=== PATIENT | female | born 1950 | race Caucasian/White ===

== ENCOUNTER → 2020-06-03 | Outpatient (CLI) | payer MEDICARE, BC ==
[2020-06-03 12:51] LABS: Basophils # (A) 0.2 k/uL (0-0.2); Basophils % (A) 2 %; Eosinophils # (A) 0.2 k/uL (0-0.7); Eosinophils % (A) 2 %; HCT 42.4 % (34.0-46.0); HGB 14.3 gm/dL (11.4-16.0); Lymphocytes # (A) 2.7 k/uL (1.0-4.8); Lymphocytes % (A) 33 %; MCH 31.5 pg (25.0-35.0); MCHC 33.7 g/dL (31.0-37.0); MCV 93.6 fL (80.0-100.0); Mean Platelet Volume 7.5; Monocytes # (A) 0.5 k/uL (0-1.0); Monocytes % (A) 6 %; Neutrophils # (A) 4.6 k/uL (1.3-7.7); Neutrophils % (A) 56 %; Platelet Count 494 k/uL (150-450); RBC 4.53 m/uL (3.80-5.40); WBC 8.2 k/uL (3.8-10.6)
[2020-06-03 13:01] LABS: Prothrombin Time 9.9 sec (9.0-12.0)
[2020-06-03 13:04] LABS: Potassium 4.1 mmol/L (3.5-5.1)
== END | disposition home or self-care (01) ==
LOC: LABWHC1 12:10
PROVIDERS: ATTEND Orthopaedic Surgery
DX: Z01.818 Encounter for other preprocedural examination (principal); Z01.812 Encounter for preprocedural laboratory examination; T84.84XD Pain due to internal orthopedic prosthetic devices, implants and grafts, subsequent encounter; Z96.652 Presence of left artificial knee joint; Z79.01 Long term (current) use of anticoagulants
CPT/HCPCS: 36415; 80051; 85025; 85610; 87070

== ENCOUNTER 2020-06-08 11:41 | Inpatient (IN) | payer MEDICARE, BC ==
[2020-06-03 09:32] VITALS: BMI 27.8
--- NOTE | 2020-06-08 09:25 | HP ---
HISTORY AND PHYSICAL CHIEF COMPLAINT: Left knee pain. HISTORY OF PRESENT ILLNESS: The patient is a 69-year-old female who presents with progressive left knee pain after a previous twisting injury in November of this year. She twisted her knee. Now she is having intermittent locking and giving out. She underwent total knee arthroplasty in 2012. She has tried bracing along with rest and medications with persistence of her symptoms. PAST MEDICAL HISTORY: Significant for arthritis and hypertension. PAST SURGICAL HISTORY: Significant for left total knee arthroplasty and cholecystectomy. CURRENT MEDICATIONS: Telmisartan. She has allergies to AUGMENTIN. FAMILY HISTORY: Significant for heart disease and cancer. SOCIAL HISTORY: Negative for current tobacco or alcohol use. REVIEW OF SYSTEMS: Otherwise reviewed and is noncontributory. PHYSICAL EXAMINATION: On examination, the patient is approximately 5 foot 4, 163 pounds of mesomorphic habitus. HEENT: Exam is nonfocal. NECK: Supple. She has painless passive motion of the left hip. Straight leg raise is negative. Active motion left knee -24 degrees, full extension to 115 degrees of flexion. She has a moderate effusion. She is tender about the medial and lateral joint line. She does have some laxity with valgus stress at 30 degrees in addition to increased anterior- posterior laxity. Her distal neurovascular exam appears to be intact. She does have an antalgic gait pattern. X-rays of the left knee obtained in the office show a total knee arthroplasty with no definite lucencies or loosening. Appears to be a cruciate retaining implant. IMPRESSION: Painful left total knee arthroplasty with instability, possible PCL rupture. RECOMMENDATIONS: I talked to the patient at length regarding her condition and treatment options. At this point, she is having significant symptoms and limitation. After thorough discussion, she opts to proceed with surgery. We will plan to proceed with revision of her left total knee arthroplasty with potential polyethylene exchange versus revision of the femoral and tibial components as well. We will potentially convert this to a posterior stabilized implant. Risks and benefits were discussed at length in layman's terms. MMODL / IJN: [id number] /
[~2020-06-08 11:41] MED LIST: ACETAMINOPHEN TAB 500 MG TAB PO PRN; MELOXICAM 7.5 MG TAB PO PRN; TRANEXAMIC ACID 1,000 MG in SODIUM CHLORIDE 0.9% 100 ML IVPB PRN
[2020-06-08] MEDS ORDERED: ROPIVACAINE 246.25 MG, EPINEPHrine 0.5 MG, KETOROLAC 30 MG, cloNIDine HCL/PF 80 MCG, WA... MISCELLANE ONE ×5 (12:17)
[2020-06-08] MEDS ORDERED: ONDANSETRON 4 MG/2 ML VIAL ONE (12:37)
[2020-06-08] MEDS ORDERED: IV FLUID CONTINUATION 1,000 ML IV ONE (12:55)
[2020-06-08] MEDS ORDERED: LIDOCAINE 1% (10MG/ML) FOR IV START INTRADERMA ONE (12:55)
[2020-06-08] MEDS ORDERED: DEXAMETHASONE SOD PHOSPHATE 4 MG/ML 1 ML VIAL IV ONE (13:00)
[2020-06-08] MEDS ORDERED: ONDANSETRON 4 MG/2 ML VIAL IVP ONE (13:00)
[2020-06-08] MEDS ORDERED: MIDAZOLAM 2 MG/2 ML VIAL IV ONE (13:14)
[2020-06-08] MEDS ORDERED: TRANEXAMIC ACID 1,000 MG/10 ML VIAL ONE (13:25)
[2020-06-08] MEDS ORDERED: fentaNYL (PF) 50 MCG/ML 2 ML AMP ONE (13:25)
[2020-06-08] MEDS ORDERED: MIDAZOLAM 2 MG/2 ML VIAL ONE (13:25)
[2020-06-08] MEDS ORDERED: SODIUM CHLORIDE 0.9% 100 ML BAG ONE (13:25)
[2020-06-08] MEDS ORDERED: LIDOCAINE 1% INJ 10MG/ML (20 ML MDV) ONE (13:25)
[2020-06-08] MEDS ORDERED: PROPOFOL 10 MG/ML 20 ML VIAL IV ONE (13:25)
[2020-06-08] MEDS ORDERED: ceFAZolin 3,000 MG in SODIUM CHLORIDE 0.9% IRRIGATIO 3,000 ML IRRIGATION ONE (14:04)
[2020-06-08] MEDS ORDERED: ROPIVACAINE 0.2%-NS ON-Q PUMP 1,090 MG, EMPTY PAIN BALL 1 EACH MISCELLANE PRN (15:14)
--- NOTE | 2020-06-08 15:18 | P.OP ---
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 She underwent initial total knee arthroplasty in 2012. She is having mechanical symptoms with her knee locking intermittently. A discussion of the risks and benefits of operative intervention was made with the patient. She opted to proceed. Operative risks to include infection, neurovascular injury, development of blood clots, possible persistent instability need for subsequent procedures was discussed. Informed consent was obtained. Operative Findings: As below Description of Procedure: The patient was brought to the operating room, and after induction of spinal anesthesia the left lower extremity was prepped and draped in normal fashion. I examined the left knee. There was moderate medial and lateral in addition to anterior/ posterior instability. The tourniquet was inflated to 270 mmHg. The previous incision was utilized. Skin and subcutaneous tissues were divided sharply. Electrocautery was used for hemostasis. A medial parapatellar arthrotomy was performed. The patella was everted and the knee was flexed. The polyethylene was removed. There was noted to be significant delamination of the posterior medial corner with a large posterior medial fracture/fragment in the posterior aspect of the joint. This was removed. The joint was inspected. The tibial and femoral components were felt to be stable. I did send tissue for frozen section that showed no acute inflammation. Gram stain cultures were also obtained. A trial size 15 cruciate retaining articular surface was placed. The knee was taken through range of motion. I was able to obtain full flexion and extension with good stability with varus and valgus stress. There was also good anterior to posterior stability. The trial articular surface was removed and the posterior capsule along with the soft tissues were injected with ropivacaine. The final articular surface was placed. This was fully seated. Again the knee was taken through range of motion and felt to be stable. There was good patellofemoral tracking. The wound was irrigated with pulsatile lavage. The tourniquet was deflated with less than 40 minutes total tourniquet time. The medial parapatellar arthrotomy was closed with running #2 Ethibond suture. The subcu tissues reapproximated interrupted 2-0 Vicryl suture. The skin was reapproximated 3-0 subcuticular strata fix suture. Skin tape and adhesive was applied. A sterile dressing was applied. The patient was awoken from sedation and transferred to the recovery room in good condition. Blood loss was estimated 50 mL. No complications were incurred. Sponge and needle counts were correct at the end of the case.
[2020-06-08] MEDS ORDERED: HYDROmorphone 0.5 MG/0.5 ML SYRINGE IVP PRN ×2 (15:19→15:20)
[2020-06-08] MEDS ORDERED: HYDROcodone/APAP 5-325MG 1 EACH TAB PO PRN ×3 (15:19→15:20)
[2020-06-08] MEDS ORDERED: ONDANSETRON 4 MG/2 ML VIAL IVP PRN ×2 (15:19→15:20)
[2020-06-08] MEDS ORDERED: MAGNESIUM HYDROXIDE 2,400 MG/10 ML CUP PO PRN (15:20)
[2020-06-08] MEDS ORDERED: NALOXONE 0.4 MG/ML 1 ML VIAL IV PRN (15:20)
[2020-06-08] MEDS ORDERED: ACETAMINOPHEN TAB 325 MG TAB PO PRN (15:20)
[2020-06-08] MEDS ORDERED: traMADol 50 MG TAB PO PRN (15:20)
--- NOTE | 2020-06-08 15:34 | P.ANPRN ---
Procedure Note - Anesthesia - Nerve Block Performed Left Adductor Canal Infusion Time Out Performed: Yes Date of Procedure: 06/08/20 Procedure Start Time: 13:14 Procedure Stop Time: 13:24 Location of Patient: PreOp Indication: Acute Post-Operative Pain, Requested by Surgeon Sedation Type: Sedate with meaningful contact maintained Preparation: Sterile Prep, Sterile Dressing Position: Supine Catheter: Indwelling Needle Types: Pajunk Needle Gauge: 21 Ultrasound used to visualize needle placement: Yes Ultrasound used to observe medication spread: Yes Blood Aspirated: No Pain Paresthesia on Injection Noted: No Resistance on Injection: Normal Image Stored and Saved: Yes Events: Uneventful and Well Tolerated (ropi .5% 20cc plus dexamethasone 4mg)
--- NOTE | 2020-06-08 15:38 | XR ---
EXAMINATION TYPE: XR knee limited LT DATE OF EXAM: 06/08/2020 COMPARISON: NONE TECHNIQUE: Two views submitted HISTORY: Post op FINDINGS: There is a prosthetic knee in near anatomic alignment. There is soft tissue edema and emphysema. IMPRESSION: 1. Postoperative change. Appears in near-anatomic alignment
[2020-06-08] MEDS: ENOXAPARIN 40 MG/0.4 ML SYRINGE SQ SCH (16:51)
[2020-06-08] MEDS ORDERED: SENNOSIDES-DOCUSATE SODIUM 1 EACH TAB PO SCH (21:00)
[2020-06-08] MEDS: ASPIRIN 81 MG PO SCH (21:00)
[2020-06-08] MEDS: HYDROcodone/APAP 5-325MG 1 EACH TAB PO PRN (21:02)
[2020-06-09] MEDS: ENOXAPARIN 40 MG/0.4 ML SYRINGE SQ SCH (01:35)
[2020-06-09 06:23] LABS: Basophils % (A) 0 %; Eosinophils % (A) 0 %; HCT 41.2 % (34.0-46.0); HGB 13.2 gm/dL (11.4-16.0); Lymphocytes # (A) 1.5 k/uL (1.0-4.8); Lymphocytes % (A) 10 %; MCH 30.3 pg (25.0-35.0); MCHC 32.1 g/dL (31.0-37.0); MCV 94.5 fL (80.0-100.0); Mean Platelet Volume 7.3; Monocytes # (A) 0.6 k/uL (0-1.0); Monocytes % (A) 4 %; Neutrophils # (A) 12.7 k/uL (1.3-7.7); Neutrophils % (A) 85 %; Platelet Count 520 k/uL (150-450); RBC 4.36 m/uL (3.80-5.40); RDW 12.9 % (11.5-15.5)
[2020-06-09 07:57] VITALS: RESP 17
[2020-06-09] MEDS: ASPIRIN 81 MG PO SCH (08:13)
[2020-06-09] MEDS ORDERED: LOSARTAN 50 MG TAB PO SCH (09:00)
[2020-06-09] MEDS ORDERED: hydroCHLOROthiazide 12.5 MG CAP PO SCH (09:00)
[2020-06-09] MEDS ORDERED: ENOXAPARIN 40 MG/0.4 ML SYRINGE SQ SCH (09:00)
[2020-06-09] MEDS ORDERED: NON FORMULARY DRUG (Ubidecarenone [Co Q-10] 100 MG Capsule) PO SCH (09:00)
--- NOTE | 2020-06-09 09:59 | P.PN ---
Subjective Progress Note Date: 06/09/20 Principal diagnosis: Status post revision left total knee arthroplasty polyethylene liner exchange Patient is evaluated today at bedside, she is resting comfortably in her hospita l chair. She's ambulated with therapy Minimal difficulty. Pain is well- controlled. She currently denies any headaches, lightheadedness, chest pain or shortness of breath. Objective - Vital Signs Vital signs: Vital Signs Temp 98.5 F 06/09/20 07:33 Pulse 70 06/09/20 07:33 Resp 17 06/09/20 07:33 BP 134/75 06/09/20 07:33 Pulse Ox 95 06/09/20 07:33 Intake & Output 06/08/20 06/09/20 06/09/20 18:59 06:59 18:59 Intake Total 751 Output Total 50 Balance 701 Weight 77.6 kg Intake: IV 751 Output: Estimated Blood Loss 50 Other: # Voids 3 # Bowel Movements 1 - Exam Left lower extremity: Incision is clean, dry, and intact. The exofin fusion tape is in good condition. There is minimal soft tissue swelling and ecchymosis surrounding the medial and lateral aspects of the incision. Calf is soft, no tenderness with palpation. Plantar flexion, dorsiflexion, EHL, FHL are intact. Sensory exam to light touch throughout the extremity is intact, dorsal pedis pulses 2+. - Labs CBC & Chem 7: 06/09/20 05:46 Labs: Abnormal Lab Results - Last 24 Hours (Table) 06/09/20 Range/Units 05:46 WBC 15.0 H (3.8-10.6) k/uL Plt Count 520 H (150-450) k/uL Neutrophils # 12.7 H (1.3-7.7) k/uL Microbiology - Last 24 Hours (Table) 06/08/20 13:59 Gram Stain - Preliminary Knee - Left Wound Culture - Preliminary 06/08/20 13:59 Gram Stain - Preliminary Knee - Left Wound Culture - Preliminary 06/08/20 13:59 Anaerobic Culture - Preliminary Knee - Left 06/08/20 13:59 Anaerobic Culture - Preliminary Knee - Left Assessment and Plan Assessment: Status post revision total knee arthroplasty polyethylene liner exchange Plan: Pain control, plan for discharge home on oral medication DVT prophylaxis, we'll increase her baby aspirin to twice a day for 2 weeks Wound care instructions were discussed Home health care after discharge Plan for discharge home today Time with Patient: Less than 30
--- NOTE | 2020-06-09 10:03 | P.DS ---
Providers Date of admission: 06/08/20 11:41 Expected date of discharge: 06/09/20 Attending physician: Duong Guillory Primary care physician: Stated None Hospital Course: Date of admission: 06/08/2020 Date of discharge: 06/09/2020 Admission diagnosis: Status post revision left total knee arthroplasty polyethylene liner exchange Discharge diagnosis: Same Attending physician: Dr. Guillory Surgical procedures: Revision left total knee arthroplasty polyethylene exchange Brief history: Patient is a 69-year-old female with a history of a previous left total knee arthroplasty that has progressively become very painful. At this point patient has failed conservative treatment measures and has opted to proceed with a elective revision left total knee arthroplasty, which did reveal a failure of the polyethylene liner. Hospital course: Details of patient's surgery can be found in operative report. Patient tolerated the procedure well and was subsequently transported to orthopedic floor. Patient's orthopeidc and medical care was provided daily. Patient had daily laboratory tests performed for evaluation of overall blood counts. Patient had daily physical therapy to include strengthening range of motion as well as education with walker ambulation. Patient was treated with Lovenox for their postoperative DVT prophylaxis during their inpatient stay. Patient was noted to have a relatively uneventful postoperative course. Patient reported satisfactory pain control with oral pain medications by postoperative day 0. Patient showed satisfactory progress with physical therapy. Patient moved steadily through the program and had no difficulty meeting the goals by postoperative day 1. Given patient's otherwise satisfactory course and having met physical therapy goals, plan is to discharge patient home on postoperative day 1. Discharge condition/disposition: Patient will be discharged home in stable condition. Discharge medications: Instructions are given on resumption of patient's normal daily medications per primary care recommendation, in addition patient will be prescribed [place] 5 mg/325 mg, Colace 100 mg, aspirin 81 mg. Discharge instructions: 1. Wound care and infection precautions, keep incision dry and covered while showering, no lotions, creams, moisturizers. No soaking, tubs, pools, hottubs. Do not scrub over the incision. 2. Weight-bear as tolerated with walker / cane until follow-up. 3. Ice and elevate when necessary. Do not exceed 20 minutes per hour with ice pack. 4. Utilize compression sleeve until seen at first follow up appointment. 5. Visiting nursing care. 6. Home physical therapy including home CPM. 7. Pain meds and anticoagulants per prescription. 8. Pain medication has potential to cause constipation. Increase oral fluid and fiber intake. Contact primary care provider if you have not had a bowel movement within 48 hours after discharge 9. No anti-inflammatory medication until discussed at first post operative visit, this including Motrin, Aleve, Mobic, Diclofenac. 10. Follow up in office at 2 weeks postop with Danilo Salcedo PA-C 11. Follow up with your primary care doctor 7-10 days after discharge. 12. Contact [facility] with any questions, . Procedures: Revision left total knee arthroplasty, polyethylene liner exchange Patient Condition at Discharge: Good Plan - Discharge Summary Discharge Rx Participant: Yes New Discharge Prescriptions: New Aspirin [Adult Low Dose Aspirin EC] 81 mg PO BID #60 tablet. Docusate [Colace] 100 mg PO DAILY #20 capsule Hydrocodone/Acetaminophen [[place] 5-325] 1 each PO Q6HR PRN #30 tab PRN Reason: Pain No Action Telmisartan/Hydrochlorothiazid [Telmisartan-Hctz 40-12.5 mg Tb] 1 each PO DAILY Calcium Carbonate/Vitamin D3 [Caltrate 600 Plus D3 Tablet] 1 each PO DAILY Multivit with Calcium,Iron,Min [Women's Multivitamin] 1 each PO DAILY Cholecalciferol [Vitamin D3 (25 Mcg = 1000 Iu)] 2,000 unit PO DAILY Cranberry Fruit Extract [Cranberry] 500 mg PO DAILY Pullman-3 Fatty Acids [Pullman-3] 1,000 mg PO DAILY Ubidecarenone [Co Q-10] 120 mg PO DAILY Zinc 50 mg PO DAILY Acetaminophen [Tylenol Extra Strength] 1,000 mg PO BID PRN PRN Reason: Pain Ibuprofen [Advil] 400 mg PO HS PRN PRN Reason: Pain Discharge Medication List Acetaminophen [Tylenol Extra Strength] 1,000 mg PO BID PRN 06/03/20 [History] Calcium Carbonate/Vitamin D3 [Caltrate 600 Plus D3 Tablet] 1 each PO DAILY 06/03 [History] Cholecalciferol [Vitamin D3 (25 Mcg = 1000 Iu)] 2,000 unit PO DAILY 06/03/20 [History] Cranberry Fruit Extract [Cranberry] 500 mg PO DAILY 06/03/20 [History] Ibuprofen [Advil] 400 mg PO HS PRN 06/03/20 [History] Multivit with Calcium,Iron,Min [Women's Multivitamin] 1 each PO DAILY 06/03/20 [History] Pullman-3 Fatty Acids [Pullman-3] 1,000 mg PO DAILY 06/03/20 [History] Telmisartan/Hydrochlorothiazid [Telmisartan-Hctz 40-12.5 mg Tb] 1 each PO DAILY 06/03/20 [History] Ubidecarenone [Co Q-10] 120 mg PO DAILY 06/03/20 [History] Zinc 50 mg PO DAILY 06/03/20 [History] Aspirin [Adult Low Dose Aspirin EC] 81 mg PO BID #60 tablet.dr 06/09/20 [Rx] Docusate [Colace] 100 mg PO DAILY #20 capsule 06/09/20 [Rx] Hydrocodone/Acetaminophen [[place] 5-325] 1 each PO Q6HR PRN #30 tab 06/09/20 [Rx] Follow up Appointment(s)/Referral(s): Joesph Salcedo PAC [PHYSICIAN LEARNING TECHNOLOGIES SPECIALIST] - 2 Weeks Activity/Diet/Wound Care/Special Instructions: Orthopedic Discharge Instructions: 1. Wound care and infection precautions, keep incision dry and covered while showering, no lotions, creams, moisturizers. No soaking, pools, hot tubs. Do not scrub over incision. 2. Weight-bear as tolerated with walker / cane until follow-up. 3. Ice and elevate when necessary. Do not exceed 20 minutes per hour with ice pack. 4. Utilize compression sleeve until seen at first follow up appointment. 5. Pain meds and anticoagulants per prescription. 6. Pain medication has potential to cause constipation. Increase oral fluid and fiber intake. Contact primary care provider if you have not had a bowel movement within 48 hours after discharge. 7. No anti-inflammatory medication until discussed at first post operative visit, this including Motrin, Aleve, Mobic, Diclofenac. 8. Follow up in office at 2 weeks postop with Danilo Salcedo PA-C 9. Follow up with your primary care doctor 7-10 days after discharge. 10. Contact [facility] with any questions, . Discharge Disposition: HOME WITH HOME HEALTH SERVICES
--- NOTE | 2020-06-09 12:26 | P.PN ---
Progress Note - Text 06/09/20 655am 69-year-old female status post total knee replacement by Dr. Guillory. Patient has an On-Q pump for postop pain control with the solution running at 8 mL an hour with a VAS of 2. Plan to continue On-Q pump infusion
[2020-06-09] MEDS: HYDROcodone/APAP 5-325MG 1 EACH TAB PO PRN (14:46)
[2020-06-09 14:55] VITALS: BP 139/72; PULSE 71; TEMP 97.9
== END 2020-06-09 15:20 | disposition home health service (06) | DRG 465 ==
LOC: 2CATHESU 11:41 → 4SSUR 15:19
PROVIDERS: ADMIT Orthopaedic Surgery; ATTEND Orthopaedic Surgery
PROC: 0SWD0JC Revision of Synthetic Substitute in Left Knee Joint, Patellar Surface, Open Approach (ICD-10-PCS; principal; 2020-06-08 13:20)
PROC: 0SPD0JC Removal of Synthetic Substitute from Left Knee Joint, Patellar Surface, Open Approach (ICD-10-PCS; principal; 2020-06-08 13:20)
DX: T84.093A Other mechanical complication of internal left knee prosthesis, initial encounter (principal); I10 Essential (primary) hypertension; M19.90 Unspecified osteoarthritis, unspecified site; Z79.899 Other long term (current) drug therapy; Z87.448 Personal history of other diseases of urinary system; Z98.890 Other specified postprocedural states; Z90.49 Acquired absence of other specified parts of digestive tract; Z91.81 History of falling; Z88.0 Allergy status to penicillin; Y83.1 Surgical operation with implant of artificial internal device as the cause of abnormal reaction of the patient, or of later complication, without mention of misadventure at the time of the procedure; X50.1XXA Overexertion from prolonged static or awkward postures, initial encounter; Z82.49 Family history of ischemic heart disease and other diseases of the circulatory system; Z80.9 Family history of malignant neoplasm, unspecified
CPT/HCPCS: 64448; 76942; 85025; 87070; 87075; 87205; 88305; 88331

== ENCOUNTER → 2020-11-29 | Outpatient (CLI) | payer MEDICARE, BC ==
--- NOTE | 2020-11-30 08:34 | CT ---
EXAMINATION TYPE: CT ChestAbdPelvis wo con DATE OF EXAM: 11/29/2020 COMPARISON: None HISTORY: 70 year-old female elevated platelet count, thrombocytosis, D47.3. abnormal labs TECHNIQUE: Contiguous axial scanning of the chest, abdomen, and pelvis without IV contrast. Coronal a nd sagittal reconstructions performed. CT DLP: 787 mGycm Automated exposure control for dose reduction was used. FINDINGS: CHEST: Suggestion of a 1.4 cm nodule within the right lobe of the thyroid gland. Dedicated thyroid ultrasoun d can further evaluate. Heart normal size without pericardial effusion. Borderline ectasia ascending aorta 3.5 cm with conventional arch vessel branching anatomy. Ectatic lo w descending thoracic aorta at 2.7 cm. Prominent but nonenlarged precarinal lymph node at 9 mm. Allowing for noncontrast technique, no thora cic lymphadenopathy is identified. Strandy atelectasis in the lower lungs. Biapical pleural parenchymal scarring. More irregular focal o pacity measuring 5 mm at the right apex, axial image 8 could be reassessed in 6 months. No consolidat ion or pleural effusion. ABDOMEN: Tiny hiatal hernia. Cholecystectomy clips. Liver enlarged at 24.3 cm, probably due to the presence of a Librado's lobe. Otherwise, noncontrast ap pearance of the liver, adrenal glands, and pancreas show no gross evaluate. An extrarenal pelvis in both kidneys. Spleen is normal size at 8.9 cm. There is an omental fat-containing right periumbilical hernia measuring 4.9 cm wide. The abdominal wa ll defect measures 1.6 cm wide. No dilated small bowel, free fluid, or free air. No mesenteric or retroperitoneal lymphadenopathy. Surgical material in the right lower quadrant. Oral contrast progressed to the rectum. There is sigmo id diverticulosis. No pericolonic inflammatory change. No significant stool burden. PELVIS: Bladder is urine distended. Uterus surgically absent. Neither ovaries are clearly visualized. Tiny pe lvic phlebolith. No abnormal fluid collection in the pelvis. Small external iliac chain lymph nodes m easuring up to 7 mm. BONES: Some degenerative change at the pubic symphysis. Mild degenerative change of both hips. Degenerated l evoconvex curvature of the lumbar spine. DISH within the mid to lower thoracic spine. IMPRESSION: 1. NO SUSPICIOUS LYMPHADENOPATHY. NO SPLENOMEGALY. SIGMOID DIVERTICULOSIS BUT WITHOUT ACUTE INFLAMMAT ORY PROCESS IDENTIFIED. 2. BIAPICAL PLEURAL-PARENCHYMAL SCARRING. A MORE FOCAL DENSITY AT THE RIGHT APEX MEASURES 5 MM AND CO ULD REPRESENT ADDITIONAL SCARRING. SIX-MONTH FOLLOW-UP CT CHEST RECOMMENDED TO REASSESS. 3. A 1.4 CM NODULE IN THE RIGHT LOBE OF THE THYROID GLAND. DEDICATED THYROID ULTRASOUND CAN FURTHER E VALUATE. 4. TINY HIATAL HERNIA. AN OMENTAL FAT-CONTAINING RIGHT PERIUMBILICAL HERNIA MEASURING 4.9 CM.
== END | disposition home or self-care (01) ==
LOC: RADCTMAIN 15:45
PROVIDERS: ATTEND General Practice
DX: K57.30 Diverticulosis of large intestine without perforation or abscess without bleeding (principal); K42.9 Umbilical hernia without obstruction or gangrene; K44.9 Diaphragmatic hernia without obstruction or gangrene; J98.11 Atelectasis; D47.3 Essential (hemorrhagic) thrombocythemia
CPT/HCPCS: 71250; 74176

== ENCOUNTER → 2021-01-03 | Outpatient (CLI) | payer MEDICARE, BC ==
--- NOTE | 2021-01-03 17:35 | US ---
EXAMINATION TYPE: US thyroid st tissue head/neck DATE OF EXAM: 01/03/2021 COMPARISON: NONE CLINICAL HISTORY: Lump thyroid left side; thrombocytosis. GLAND SIZE: Right Lobe: 4.8 x 1.3 x 1.7 cm Overall Parenchyma: homogenous Left Lobe: 3.6 x 1.2 x 1.3 cm Overall Parenchyma: Homogenous Isthmus Thickness: 0.2 cm NODULES RIGHT: # of nodules measured on right: 1 1. 1.0 X 0.8 x 0.9 cm, lower mid, solid or almost completely solid, hypoechoic nodule, which is wid er than tall, with smooth margins, without echogenic foci. Prior size: no previous LEFT: # of nodules measured on left: 0 ISTHMUS: # of nodules measured in the isthmus: 0 Bilateral neck scanned, no evidence of lymphadenopathy. IMPRESSION: 1. Single isoechoic solid-appearing nodule within the right lobe of the thyroid gland measuring 1 cm. Continued sonographic follow-up is recommended. 2017 ACR TI-RADS LEVEL: 3 *Highest TI-RADS level nodule reported
== END | disposition home or self-care (01) ==
LOC: RADUSWWP 15:29
PROVIDERS: ATTEND General Practice
DX: E04.1 Nontoxic single thyroid nodule (principal); D69.9 Hemorrhagic condition, unspecified
CPT/HCPCS: 76536

== ENCOUNTER 2021-08-07 09:01 | Day surgery (SDC) | payer MEDICARE, BC ==
[2021-08-07 09:31] VITALS: RESP 16; TEMP 97.6
[2021-08-07] MEDS ORDERED: ALPRAZolam 0.25 MG TAB PO STA (09:31)
[2021-08-07 10:43] VITALS: BP 147/73; PULSE 75
--- NOTE | 2021-08-07 11:29 | US ---
EXAMINATION TYPE: US FNA first lesion, US biopsy lymph node DATE OF EXAM: 08/07/2021 HISTORY: Right neck adenopathy. FINDINGS: Maximal barrier technique was utilized. Hand hygiene achieved with alcohol-based hand rub. The skin overlying a suitable path to the patient's right neck adenopathy was localized with ultraso und and the overlying skin prepped and draped. Ultrasound was utilized with sterile technique. Lidoc kendy was used for local anesthesia. 2 passes with a 25-gauge needle were made under ultrasound guid ance and aspirated specimen submitted to cytology. A skin kendra was made with a scalpel. A 20-gauge co re needle was advanced under direct ultrasound guidance and core specimen obtained of the right neck node. Specimen submitted in formalin to Pathology. Following the procedure, hemostasis achieved and the patient is discharged in stable condition without complication. IMPRESSION:STATUS POST ULTRASOUND GUIDED CORE BIOPSY OF right neck adenopathy with fine-needle aspira tion, PATHOLOGY IS PENDING. THIS PROCEDURE IS PERFORMED BY THE UNDERSIGNED.
== END 2021-08-07 10:45 | disposition home or self-care (01) ==
LOC: RADPROMAIN 09:01
PROVIDERS: ATTEND Internal Medicine Hematology & Oncology
DX: R59.0 Localized enlarged lymph nodes (principal)
CPT/HCPCS: 10005; 36415; 38505; 76942; 88173; 88305

== ENCOUNTER → 2023-06-19 | Outpatient (CLI) | payer MEDICARE, BC ==
--- NOTE | 2023-06-19 15:00 | CT ---
EXAMINATION TYPE: CT abdomen pelvis wo con DATE OF EXAM: 06/19/2023 COMPARISON: 11/29/2020 HISTORY: RUQ mass CT DLP: 698.5 mGycm Examination of the solid and hollow viscera is limited given the lack of contrast. FINDINGS: LUNG BASES: No evidence for nodule. No evidence for infiltrate. LIVER/GB: Cholecystectomy clips are in place. No space-occupying hepatic lesion. PANCREAS: No pancreatic mass identified. No inflammatory process seen. SPLEEN: No evidence for splenomegaly. No intrasplenic lesions seen. ADRENALS: No adrenal nodules identified. No evidence for thickening. KIDNEYS: No evidence for renal mass. No nephrolithiasis. No hydronephrosis. BOWEL: Appendix has a normal appearance. No evidence of bowel obstruction. No inflammatory process. Lymph nodes: No evidence for adenopathy greater than 1 cm. Abdominal aorta: Atheromatous changes seen. No evidence for aneurysm. Genital organs: No significant abnormality. Other: Anterior abdominal wall fat-containing hernia to the right of midline is 5.2 x 3.2 cm. Severe multilevel degenerative disc space narrowing lumbar spine. IMPRESSION: 1.Anterior abdominal wall fat-containing hernia to the right of midline is 5.2 x 3.2 cm.
== END | disposition home or self-care (01) ==
LOC: RADCTMAIN 14:15
PROVIDERS: ATTEND Student in an Organized Health Care Education/Training Program
DX: R19.01 Right upper quadrant abdominal swelling, mass and lump (principal); K44.9 Diaphragmatic hernia without obstruction or gangrene
CPT/HCPCS: 74176